=== PATIENT | female | born 1930 | race Caucasian/White ===

== ENCOUNTER 2017-01-04 11:47 | Emergency (ER) | payer MEDICARE ==
--- NOTE | 2017-01-04 12:40 | RAD ---
LEFT KNEE 4 VIEWS: HISTORY: Left knee injury. COMPARISON: 08/16/13. FINDINGS: Prominent soft tissue swelling now overlies the anterior soft tissues. A small amount of fluid dist ends the suprapatellar bursa. Bulky osteophytosis and chondrocalcinosis is again demonstrated. The re is joint space narrowing and mild lateral subluxation at the level of the knee. IMPRESSION: In addition to the severe osteoarthritic changes, there is now prominent prepatellar soft tissue jay jay welsh. POS: [facility]
--- NOTE | 2017-01-04 12:45 | CT ---
CT HEAD NONCONTRAST: HISTORY: Fall. Head injury. COMPARISON: 11/02/2007 FINDINGS: There is no evidence of acute intracranial hemorrhage or infarct. Diffuse cortical atrophy and balancer scale nessa ischemic small vessel disease are again demonstrated. There is no mass effect or shift of midli ne structures. The visualized paranasal sinuses remain well aerated. IMPRESSION: No acute traumatic injury is demonstrated. POS: [facility]
--- NOTE | 2017-01-04 13:16 | RAD ---
RIGHT ELBOW FOUR VIEWS: HISTORY: Fall. Right elbow injury. FINDINGS: Radial capitellar alignment is maintained. There is osteophytosis, joint space narrowing, and chond rocalcinosis. No acute fracture, dislocation, or fluid distention of the joint capsule is apparent. IMPRESSION: Osteoarthritis, right elbow. POS: [facility]
== END 2017-01-04 13:45 | disposition home or self-care (01) ==
LOC: SCSER 11:47
DX: S80.02XA Contusion of left knee, initial encounter (principal); S50.01XA Contusion of right elbow, initial encounter; M19.90 Unspecified osteoarthritis, unspecified site; E11.9 Type 2 diabetes mellitus without complications; K21.9 Gastro-esophageal reflux disease without esophagitis; E78.5 Hyperlipidemia, unspecified; I10 Essential (primary) hypertension; Z87.891 Personal history of nicotine dependence; W18.30XA Fall on same level, unspecified, initial encounter
CPT/HCPCS: 70450

== ENCOUNTER 2017-06-13 14:36 | Emergency (ER) | payer MEDICARE ==
--- NOTE | 2017-06-13 15:16 | CT ---
CT BRAIN WITHOUT CONTRAST: Date: 06/13/17 HISTORY: Fall. COMPARISON: CT brain dated 01/04/17. FINDINGS: There is intraparenchymal hemorrhage of the body of the right caudate, as well as some hemorrhage wit hin the periventricular white matter. There is also a small focus of hemorrhage is the anterior horn of the right lateral ventricle. There is a punctate calcification along the left superior frontal sulcus. Paranasal sinuses and mastoids are clear. IMPRESSION: Acute intraparenchymal hemorrhage of the body of the right caudate, measuring 0.6 x 1.1 x 1.1 cm. The re is a small focus of hemorrhage extending to the periventricular white matter and within the anteri or horn of right lateral ventricle. Dr. Eden notified of findings at 1507 hours on 06/13/17. CODE CR. POS: [facility]
--- NOTE | 2017-06-13 16:10 | CT ---
CT CERVICAL SPINE NONCONTRAST: Date: 06/13/17 HISTORY: Fall. Neck injury. FINDINGS: Vertebral body heights are maintained. There is disc space narrowing and prominent osteophytosis thro ughout the cervical spine. Cervicothoracic junction is intact. No acute fracture or dislocation. Calc ification in the arterial structures. IMPRESSION: 1. No acute osseous abnormalities are demonstrated. 2. Prominent arthritic changes cervical spine. 3. Atherosclerosis. POS: [facility]
[2017-06-13 16:32] LABS: #Lymphocytes 1.4 thou/uL (1.20-3.40); #Monocytes 0.8 thou/uL (0.11-0.59); #Neutrophils 4.8 thou/uL (1.40-6.50); %Basophils 0.4 % (0.0-1.0); %Eosinophils 0.1 % (0.0-10.0); %Lymphocytes 19.6 % (21.0-51.0); %Monocytes 10.9 % (0.0-10.0); Mean Corpuscular HGB CONC 30.9 g/dL (32.0-36.0); Mean Corpuscular Hemoglobin 25.8 pg (27.0-31.0); Mean Corpuscular Volume 83.5 fl (81.0-99.0); Mean Platelet Volume 10.6 fL (7.4-10.4); Platelet Count 241 thou/uL (130-400); RBC Distribution Width 15.7 % (11.5-14.5); Red Blood Cell (RBC) Count 5.05 mill/uL (4.20-5.40)
[2017-06-13 16:51] LABS: Bilirubin Negative (Negative); Blood, Urine Negative (Negative); Clarity CLEAR (Clear); Glucose, Urine (Dipstick) 100 mg/dL (Negative); Leukocyte Negative (Negative); Nitrite Negative (Negative); Protein, Urine (Dipstick) Negative (Neg-Trace); Specific Gravity, Urine 1.012 (1.002-1.036); pH, Urine 7.5 (5.0-9.0)
[2017-06-13 17:07] LABS: INR-International Normal Ratio 1.1
[2017-06-13 17:08] LABS: PTT 35.9 SEC (22.9-36.1)
[2017-06-13 17:18] LABS: ALT (SGPT) 14 U/L (8-55); AST (SGOT) 19 U/L (5-34); Albumin 3.8 g/dL (3.4-4.8); Alkaline Phosphatase 80 U/L (40-150); Anion Gap 9 mmol/L (10-20); BUN (Urea Nitrogen) 13 mg/dL (9.8-20.1); Bilirubin, Total 0.5 mg/dL (0.2-1.2); CK (CPK) 61 U/L (29-168); Calc. Creatinine Clearance 0 mL/min (70-130); Carbon Dioxide 27 mmol/L (23-31); Chloride 105 mmol/L (98-107); Estimated GFR-MDRD 67; Globulin 2.7 g/dL (2.4-3.5); Glucose 141 mg/dL (83-110); Protein, Total 6.5 g/dL (6.0-8.3); Sodium 137 mmol/L (136-145)
[2017-06-13 17:23] LABS: CKMB 3.3 ng/mL (0-6.6); Troponin I Less than 0.010 ng/mL (< 0.028)
--- NOTE | 2017-06-13 23:21 | CON ---
DATE OF CONSULTATION: 06/13/2017 HISTORY OF PRESENT ILLNESS: Ms. De Luna is an 87-year-old female who presents today to [facility] after she got out from a nap and went to the bathroom and fell in her bathroom. She hit he r head and has a small contusion to the right-sided frontal scalp. CT scan of the head at [facility] showed an acute intraparenchymal hemorrhage in the right caudate and small periventricular hemorrhage in the white matter and anterior horn of the right lateral ventricle. She is on a baby as pirin daily. On exam, she has some chronic short term memory loss per family. Otherwise, completely neurologically intact and she is alert and oriented x3 and has a GCS of 15. Neurosurgery was consul tamra for the findings on the CT scan of the brain. ALLERGIES: 1. NOVOCAIN. 2. PROPARACAINE HYDROCHLORIDE. CURRENT MEDICATIONS: 1. Celebrex 200 mg oral. 2. Januvia 50 mg oral. 3. Metformin 500 mg oral. 4. Metoprolol succinate extended release 24 hour 50 mg oral. 5. Furosemide 20 mg oral. 6. Sertraline 100 mg oral. 7. Lisinopril 40 mg oral. 8. Potassium 95 mg oral. 9. Aspirin 81 mg oral. 10. Clonidine patch transdermal weekly 0.1 mg q.24 hours transdermal. PAST MEDICAL HISTORY: Includes diabetes, gastroesophageal reflux disease, hyperlipidemia, high shane sterol, and hypertension. PAST SURGICAL HISTORY: Includes pacemaker, appendectomy, coronary artery bypass graft, hysterectomy, bilateral shoulder and hip replacements. SOCIAL HISTORY: The patient denies any alcohol or drug use. She is a former tobacco user, smoked ci garettes and denies alcohol use. REVIEW OF SYSTEMS: A 10-point review of systems completed. The patient has complaints of right-side d contusion. She admits to falling in her bathroom. The contusion is right frontal scalp. Otherwis e, review of systems is negative, unless stated in the above HPI. PHYSICAL EXAMINATION: VITAL SIGNS: Blood pressure 149/85, pulse 73, respirations 20, temperature is 97.7. GENERAL: The patient is alert and oriented x3. She is lying in her bed, in no acute distress. HEENT: Normocephalic with a sign of traumatic contusion to the right frontal scalp. Trachea is midl ine. Mild loss of hearing that is chronic. RESPIRATORY: The patient has bilateral symmetric chest rise. Appears to be in no shortness breath. CARDIOVASCULAR: The patient has regular rate and rhythm, normal S1, S2 heart sounds. No distal cyan osis or clubbing noted. EXTREMITIES: The patient has a 5/5 strength bilaterally in the upper and lower extremities. There a re no focal sensory or motor deficits noted. NEUROLOGIC: Cranial nerves II-XII are grossly intact. GCS of 15. Speech is fluent. She answers my questions appropriately. IMPRESSION: This is an 87-year-old female status post fall and has a small right caudate acute hemor rhage. PLAN: After reviewing the images with Dr. Damon, the increased attenuation on the CT scan is lik jennifer a calcification or a very small hemorrhage. As long as the patient has someone watching her at [facility], she can be discharged. If there is any worsening of exam, please bring the patient back to the emergency department for repeat CT scan. We will follow up in our office in 3-4 weeks with a repeat CT scan to assess any changes. If there are any further questions, please feel free to contact Neuro surgery.
== END 2017-06-13 19:07 | disposition home or self-care (01) ==
LOC: ERS 14:36
DX: S06.309A Unspecified focal traumatic brain injury with loss of consciousness of unspecified duration, initial encounter (principal); S60.511A Abrasion of right hand, initial encounter; E11.9 Type 2 diabetes mellitus without complications; K21.9 Gastro-esophageal reflux disease without esophagitis; E78.5 Hyperlipidemia, unspecified; I10 Essential (primary) hypertension; Z87.891 Personal history of nicotine dependence; Z79.4 Long term (current) use of insulin; Z79.899 Other long term (current) drug therapy; Z79.82 Long term (current) use of aspirin; W18.11XA Fall from or off toilet without subsequent striking against object, initial encounter
CPT/HCPCS: 36415; 70450; 72125; 80053; 81003; 82553; 84484; 85025; 85610; 85730; G0390

== ENCOUNTER 2017-07-14 20:20 | Inpatient (IN) | payer MEDICARE ==
[2017-07-14] MEDS ORDERED: traMADol HCl 50 MG TAB ONE (21:51)
--- NOTE | 2017-07-14 22:14 | RAD ---
FRONTAL VIEW PELVIS: 07/14/17 COMPARISON: 11/02/07 CLINICAL HISTORY: Fall with pelvis pain. FINDINGS: Right hip prosthesis is present. There is no acute, displaced pelvic fracture. Patient is rotated. IMPRESSION: No obvious acute process of the pelvis. POS: [facility]
--- NOTE | 2017-07-14 22:25 | RAD ---
FOUR VIEW LEFT KNEE: 07/14/17 CLINICAL HISTORY: Fall with injury and pain. FINDINGS: There is a comminuted distal femoral fracture centered at the distal metaphyseal region with apex med ial and anterior angulation. There is heterotopic density. Distracted fracture of the patella is seen . There is associated joint capsular distention and soft tissue edema. IMPRESSION: Comminuted distal femoral fracture. Distracted patellar fracture. Orthopedic consultation is warranted. POS: [facility]
[2017-07-14 22:42] LABS: #Lymphocytes 0.8 thou/uL (1.20-3.40); #Monocytes 0.5 thou/uL (0.11-0.59); #Neutrophils 11.9 thou/uL (1.40-6.50); %Basophils 0.2 % (0.0-1.0); %Eosinophils 0.2 % (0.0-10.0); %Lymphocytes 6.3 % (21.0-51.0); %Neutrophils 89.3 % (42.0-75.0); Hemoglobin 13.3 g/dL (12.0-16.0); Mean Corpuscular HGB CONC 32.8 g/dL (32.0-36.0); Mean Corpuscular Hemoglobin 26.5 pg (27.0-31.0); Mean Corpuscular Volume 80.7 fl (81.0-99.0); Mean Platelet Volume 8.4 fL (7.4-10.4); Platelet Count 228 thou/uL (130-400); RBC Distribution Width 14.4 % (11.5-14.5); Red Blood Cell (RBC) Count 5.04 mill/uL (4.20-5.40); White Blood Cell (WBC) Count 13.3 thou/uL (4.8-10.8)
[2017-07-14 22:46] LABS: Bilirubin Negative (Negative); Blood, Urine Trace (Negative); Clarity CLEAR (Clear); Glucose, Urine (Dipstick) 100 mg/dL (Negative); Leukocyte Negative (Negative); Nitrite Negative (Negative); Protein, Urine (Dipstick) Negative (Neg-Trace); Specific Gravity, Urine 1.013 (1.002-1.036)
[2017-07-14 22:48] LABS: Bacteria/HPF None Seen HPF (None Seen); Hyaline Casts/LPF 0-3 HYALINE CAST LPF (0-3 Hyaline); Squamous Epithelial None Seen HPF (0-3); WBC/HPF None Seen HPF (0-3)
[2017-07-14 22:51] LABS: Prothrombin Time 13.6 SEC (12.0-14.7)
[2017-07-14 22:52] LABS: PTT 35.7 SEC (22.9-36.1)
--- NOTE | 2017-07-14 22:52 | RAD ---
FRONTAL VIEW CHEST: 07/14/17 INDICATION: Injury, fall with pain. FINDINGS: There is bilateral diffuse interstitial reticulonodular opacification of the lungs. The cardiac silho uette and pulmonary vasculature are prominent. There is a left sided dual lead subclavian cardiac pac ing device. Evidence of prior sternotomy, with vascular calcification. Mild linear density of the mid right lung may relate to mild component of fissural fluid or pleural thickening. IMPRESSION: Findings most consistent with CHF and interstitial edema. Superimposed atypical infectious/inflammato ry process not excluded. Correlate clinically. Recommend imaging followup. POS: [facility]
[2017-07-14 23:00] LABS: ALT (SGPT) 10 U/L (8-55); AST (SGOT) 16 U/L (5-34); Albumin 4.3 g/dL (3.4-4.8); Alkaline Phosphatase 86 U/L (40-150); Anion Gap 15 mmol/L (10-20); BUN (Urea Nitrogen) 14 mg/dL (9.8-20.1); Bilirubin, Total 0.6 mg/dL (0.2-1.2); Calc. Creatinine Clearance 0 mL/min (70-130); Calcium 9.4 mg/dL (7.8-10.44); Carbon Dioxide 21 mmol/L (23-31); Chloride 100 mmol/L (98-107); Estimated GFR-MDRD 68; Globulin 3.2 g/dL (2.4-3.5); Glucose 191 mg/dL (83-110); Protein, Total 7.5 g/dL (6.0-8.3); Sodium 132 mmol/L (136-145)
[2017-07-14 23:57] LABS: CKMB 2.3 ng/mL (0-6.6); Troponin I Less than 0.010 ng/mL (< 0.028)
[2017-07-15] MEDS ORDERED: Dextrose 5% in Water 1,000 ML IV PRN (00:07)
[2017-07-15] MEDS ORDERED: Ondansetron ODT 4 MG TAB PO PRN (00:07)
[2017-07-15] MEDS ORDERED: hydrALAZINE 20 MG/ML VIAL SLOW IVP PRN (00:07)
[2017-07-15] MEDS ORDERED: Ondansetron PF 4 MG/2 ML Vial IVP PRN (00:07)
[2017-07-15] MEDS ORDERED: Dextrose 50% Abboject 50 ML SYRINGE SLOW IVP PRN (00:07)
[2017-07-15] MEDS ORDERED: Morphine 4 MG/ML VIAL SLOW IVP PRN (00:07)
[2017-07-15] MEDS ORDERED: Ketorolac Tromethamine 30 MG/ML VIAL ONE (00:16)
[2017-07-15 02:07] VITALS: BMI 25.0
[2017-07-15] MEDS: Sodium Chloride 0.9% 1,000 ML IV SCH ×2 (02:19→19:36)
[2017-07-15] MEDS: Ketorolac Tromethamine 30 MG/ML VIAL IVP SCH ×3 (02:28→19:36)
[2017-07-15] MEDS: Acetaminophen 1,000 MG in Premix Bag 1 BAG IVPB SCH ×3 (02:28→19:36)
[2017-07-15] MEDS: traMADol HCl 50 MG TAB PO SCH ×4 (02:29→19:33)
--- NOTE | 2017-07-15 05:16 | HP ---
DATE OF ADMISSION: 07/14/2017 ATTENDING PHYSICIAN: Ignacio Bermeo M.D. TRAUMA ACTIVATION: Not applicable. HISTORY OF PRESENT ILLNESS: This is an 87-year-old female who presented to [facility] status post mechanical fall. Per patient and daughter at bedside, patient was in the bathroom earlier today whe n she slipped and fell landing on her left side. The patient had immediate onset of left lower extre mity pain and was unable to bear weight on that side. She was evaluated in the emergency room and fo und to have a distal left femur fracture. Of note, the patient has a history of left patellar fractu re that was treated nonoperatively secondary to increased cardiac risk in 01/2017. Upon my evaluatio n, the patient has a chief complaint of left knee pain. She vocalized no other complaint at this cait e. She denies hitting her head or loss of consciousness. ALLERGIES: NOVOCAIN. PAST MEDICAL HISTORY: Significant for diabetes, hypertension, dementia, coronary artery disease stat us post CABG, permanent pacemaker implantation, and congestive heart failure. PAST SURGICAL HISTORY: CABG, permanent pacemaker, bilateral shoulder surgery, right hip surgery, chidi k surgery x2, hysterectomy, cholecystectomy, appendectomy. SOCIAL HISTORY: The patient lives at home with 24-hour caregiver presence. She ambulates with a wal ker. She denies any alcohol use. She has a remote history of tobacco use. Denies illicit drug use. REVIEW OF SYSTEMS: Negative except as indicated in the HPI. PHYSICAL EXAMINATION: VITAL SIGNS: On evaluation, heart rate 73, blood pressure 182/103, pulse ox 94% on room air, respira tions 18, and last temperature 98.4. GENERAL: Well-developed elderly female resting in bed in no acute distress. HEAD: Normocephalic, atraumatic. EYES: Pupils are PERRLA. Extraocular movements are intact. NECK: Supple. Trachea is midline. Range of motion within normal limits for patient. CHEST/PULMONARY: Normal work of breathing, symmetric rise. There is a midline incision consistent w ith coronary artery bypass grafting history. LUNGS: Clear to auscultation bilaterally. CARDIOVASCULAR: Regular rate and rhythm, no obvious murmurs, rubs or gallops. GASTROINTESTINAL: Soft, nontender, nondistended. Bowel sounds are positive. BACK: Reported as being within normal limits. MUSCULOSKELETAL: Bilateral upper extremities within normal limits. Right lower extremity within nor mal limits. Left knee shows diffuse swelling with some ecchymosis. Range of motion is limited secon kev to pain. NEUROLOGIC: Alert and oriented to person, place, and time. No focal deficit is noted. Left lower e xtremity, she is neurovascularly intact distal to the side of her injury. LABORATORY FINDINGS: WBC 13.3, hemoglobin 13.3, hematocrit 40.7, and platelet count 228. INR 1.0. Sodium 132, potassium 4.0, chloride 100, carbon dioxide 21, BUN 14, creatinine 0.80, glucose 191. T and ALT within normal limits. Urinalysis was with glucosuria, ketonuria, and some blood, otherwise unremarkable. Cardiac enzymes are pending. EKG with ventricular paced rhythm, no evidence of ST segment elevation myocardial infarction. RADIOGRAPHIC FINDINGS: X-ray of the left knee, significant for distal femur fracture and patellar fr acture. Pelvic x-ray was negative for acute fracture or dislocation. Chest x-ray showed diffuse omer ateral infiltrates. ASSESSMENT: 1. Status post mechanical fall. 2. Left distal femur fracture. 3. Acute traumatic pain. 4. History of coronary artery disease status post coronary artery bypass graft. 5. History of congestive heart failure present on admission. 6. History of hypertension. 7. History of diabetes. 8. History of dementia. 9. History of patellar fracture. 10. History of frequent falls. PLAN: 1. Admit to Trauma Services. 2. Orthopedic surgery has been notified of injury and we will evaluate the patient in the morning. The patient will be n.p.o. after midnight until evaluated by Orthopedic Surgery. Sliding scale insul in and Accu-Cheks. Perioperative pain management. Postoperative PT and OT. Per discussion with Ort hopedic Surgery, place the patient in a knee immobilizer now. The patient's catering assistant is Dr. Jerri lugo. Day shift team will attempt to contact his office to obtain cardiac records. Echo has been orde red. Follow up cardiac enzymes. Per discussion with patient and daughter at bedside, the patient wi shes to be a DO NOT RESUSCITATE for this admission. This will be reflected in her chart. Plan for a dmission were discussed with the patient and daughter and all questions were answered at the time of this dictation. Trauma attending has been notified of admission.
[2017-07-15 05:44] LABS: #Lymphocytes 1.8 thou/uL (1.20-3.40); #Monocytes 0.9 thou/uL (0.11-0.59); #Neutrophils 6.6 thou/uL (1.40-6.50); %Basophils 0.2 % (0.0-1.0); %Eosinophils 0.1 % (0.0-10.0); %Lymphocytes 19.2 % (21.0-51.0); %Neutrophils 70.5 % (42.0-75.0); Hemoglobin 11.9 g/dL (12.0-16.0); Mean Corpuscular HGB CONC 32.4 g/dL (32.0-36.0); Mean Corpuscular Hemoglobin 26.3 pg (27.0-31.0); Mean Platelet Volume 8.2 fL (7.4-10.4); Platelet Count 204 thou/uL (130-400); RBC Distribution Width 14.4 % (11.5-14.5); Red Blood Cell (RBC) Count 4.54 mill/uL (4.20-5.40); White Blood Cell (WBC) Count 9.4 thou/uL (4.8-10.8)
[2017-07-15 05:58] LABS: Anion Gap 11 mmol/L (10-20); BUN (Urea Nitrogen) 13 mg/dL (9.8-20.1); Calc. Creatinine Clearance 49 mL/min (70-130); Carbon Dioxide 26 mmol/L (23-31); Chloride 102 mmol/L (98-107); Estimated GFR-MDRD 74; Glucose 118 mg/dL (83-110); Magnesium 1.5 mg/dL (1.6-2.6); Phosphorus 4.1 mg/dL (2.3-4.7); Potassium 3.6 mmol/L (3.5-5.1); Sodium 135 mmol/L (136-145)
[2017-07-15] MEDS ORDERED: CEFAZOLIN/Water 2 GM/20 ML SYRINGE SLOW IVP SCH (07:15)
[2017-07-15] MEDS ORDERED: Furosemide 40 MG/4 ML VIAL SLOW IVP SCH (07:45)
--- NOTE | 2017-07-15 07:45 | CON ---
DATE OF CONSULTATION: 07/15/2017 REQUESTING PHYSICIAN: Dr. Ignacio Bermeo. CONSULTING PHYSICIAN: Dr. Jairo Kelly. REASON FOR CONSULTATION: Left femur fracture. HISTORY OF PRESENT ILLNESS: This is an 87-year-old female who is established with victorina Arceo to the emergency department last night, status post mechanical fall at home. The patient states that she was in the bathroom when she turned a corner and slipped and fell. Her caregiver tried to c atch her, but her left leg twisted. She had immediate pain and was unable to bear weight. She was f ound in the emergency room to have a left distal displaced femur fracture. Orthopedics was consulted for this reason. Patient is familiar to our service. She has had a history of a right hip replacem ent performed by Dr. Kelly as well as a left patellar fracture treated nonoperatively in 01/2017. A t bedside, the patient denies any other complaints at this time. Denies any other injuries. Denies hitting her head or losing consciousness. Her daughter is at bedside. ALLERGIES: NOVOCAIN. PAST MEDICAL HISTORY: Significant for diabetes, hypertension, dementia, coronary artery disease stat us post CABG, permanent pacemaker implantation, congestive heart failure. PAST SURGICAL HISTORY: CABG, permanent pacemaker, bilateral shoulder surgery, right hip surgery, chidi k surgery x2, hysterectomy, cholecystectomy, appendectomy. SOCIAL HISTORY: The patient lives at home with 24-hour caregiver. She normally ambulates with a wal ker. She denies any alcohol or illicit drug use. She does have a history of remote tobacco use. FAMILY HISTORY: Noncontributory. REVIEW OF SYSTEMS: Ten point review of systems conducted and otherwise negative except for noted abo ve. PHYSICAL EXAMINATION: VITAL SIGNS: Temperature of 97.9, pulse of 66, respiratory rate of 20, blood pressure 156/73. GENERAL: The patient is awake, alert, and oriented x3. She is in no acute distress. She is hard of hearing. Daughter is at bedside. HEENT: Head is normocephalic, atraumatic. NECK: Supple. RESPIRATORY: Breathing is nonlabored. EXTREMITIES: The left lower extremity was examined. She has swelling and tenderness to palpation al adrianne the distal femur. Range of motion not assessed secondary to fracture. Distal neurovascular stat us is intact. SKIN: Intact. RADIOGRAPHIC FINDINGS: Reviewed with Dr. Kelly today including views of the left knee show a displa rajendra left distal femur fracture. This appears comminuted. There is also presence of an old patellar fracture. Pelvis x-rays also reviewed, which shows evidence of an old right total hip replacement. No acute findings. ASSESSMENT AND PLAN: Left distal femur fracture with displacement and comminution. Dr. Tapia has a greed to see the patient. There is an echo ordered for today. The patient seen at bedside and plan of care discussed with Dr. Kelly. We plan to take the patient to the operating room this morning fo r open reduction internal fixation of the left distal femur fracture. Patient and family are in agre eance with the plan of care. Risks, benefits, and alternatives of surgery were discussed at length w ith the patient. They verbalized understanding. We plan to go to the OR this morning. Thank you for this consultation.
--- NOTE | 2017-07-15 07:58 | CON ---
DATE OF CONSULTATION: 07/15/2017 REASON FOR CONSULTATION: Preoperative evaluation. HISTORY OF PRESENT ILLNESS: Ms. Angel De Luna is a delightful 87-year-old woman with history of b ypass surgery, pacemaker insertion, hypertension who has a femur fracture and needs repair. Ms. De Luna was admitted to the hospital after she had fallen and fractured her femur. The patien t has been doing well from a cardiac standpoint, she has not been having chest pain or pressure, no s hortness of breath. The patient fell because she lost her balance. ALLERGIES: NOVOCAIN. PAST HISTORY: 1. Previous bypass surgery. 2. Previous pacemaker insertion. She had the pacemaker checked in March of this year. There was estimated to be 3.5 years left on the battery and the pacer is functioning normally. REVIEW OF SYSTEMS: CONSTITUTIONAL: No significant weight gain or loss. VISION: No changes. HEARING: No changes. PULMONARY: No cough or wheezing. GASTROINTESTINAL: No nausea, vomiting, diarrhea. SKIN: No rashes. NEUROLOGIC: No unilateral weakness or numbness. PSYCHIATRIC: No unusual depression or anxiety. HEMATOLOGIC: No unusual bruising. GENITOURINARY: No burning with urination. PAST MEDICAL HISTORY: 1. As mentioned previous coronary artery bypass grafting, not having angina. 2. History of hypertension, controlled. 3. Dual chamber pacemaker with normal function. PHYSICAL EXAMINATION: GENERAL: This is a delightful elderly woman resting comfortably in no distress, alert and oriented, not having chest pain, no shortness of breath. She is lying supine. VITAL SIGNS: Blood pressure 156/73, pulse 66 regular. HEENT: Eyes; sclerae nonicteric. Mouth mucous membranes moist. NECK: Supple, no lymphadenopathy. LUNGS: Clear, no wheezing, rales or rhonchi. CARDIAC: Normal S1, normal S2. There is no murmur, rub or gallop. ABDOMEN: Soft, nontender. EXTREMITIES: No clubbing or cyanosis, no edema. SKIN: Warm and dry. PERTINENT LABORATORY AND X-RAY FINDINGS: Hemoglobin 11.9. Creatinine is 0.74. The patient's last cardiac catheterization was done in 2012. She had patent graft to the LAD, diagon al, and right coronary artery. 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 There was some distal atherosclerosis. Ejection fraction 55% at that time. EKG reveals a ventricular paced rhythm. Chest x-ray shows some pulmonary vascular congestion. ASSESSMENT: Stable cardiac status probably somewhat volume overloaded. PLAN: 1. Will give a single dose of furosemide. 2. Okay with me to proceed to surgical therapy, may need some diuretic postoperatively.
[2017-07-15] MEDS ORDERED: Metoprolol Tartrate 5 MG/5 ML VIAL ONE (08:09)
[2017-07-15] MEDS ORDERED: CEFAZOLIN/Water 2 GM/20 ML SYRINGE ONE (08:13)
[2017-07-15] MEDS ORDERED: Potassium Chloride 40 MEQ, Magnesium Sulfate 2 GM in Sodium Chloride 0.9% 250 ML 250 ML IVPB SCH (08:30)
[2017-07-15] MEDS ORDERED: Famotidine/PF 20 mg/2ml Vial SLOW IVP SCH (09:00)
[2017-07-15] MEDS ORDERED: Metoprolol Tartrate 50 MG TAB PO SCH (09:00)
[2017-07-15] MEDS ORDERED: Fentanyl 100 MCG/2 ML VIAL ONE ×2 (09:18→10:40)
[2017-07-15] MEDS ORDERED: Promethazine HCl 25 MG/ML VIAL IM PRN ×2 (10:22→11:52)
[2017-07-15] MEDS ORDERED: Promethazine HCl 25 MG/ML VIAL SLOW IVP PRN ×2 (10:22→11:52)
[2017-07-15] MEDS ORDERED: Ondansetron HCl/PF 4 MG/2 ML Vial IVP PRN ×2 (10:22→11:52)
--- NOTE | 2017-07-15 10:36 | RAD ---
FIVE INTRAOPERATIVE RADIOGRAPHS LFT FEMUR: HISTORY: Left leg trauma. Open reduction internal fixation. FINDINGS: Five intraoperative radiographs of the left femur obtained. Images demonstrate placement of plates and screws across the fractured distal femur. Plates and scre ws are in good position. IMPRESSION: Open reduction internal fixation distal left femoral fracture. POS: [facility]
[2017-07-15] MEDS ORDERED: Ibuprofen 600 MG TAB PO SCH (14:45)
[2017-07-15] MEDS ORDERED: Furosemide 40 MG/4 ML VIAL ONE (14:58)
[2017-07-15] MEDS ORDERED: PROPOFOL 200 MG/20 ML VIAL ONE (15:06)
[2017-07-15] MEDS ORDERED: Ondansetron PF 4 MG/2 ML Vial ONE (15:06)
[2017-07-15] MEDS ORDERED: Dexamethasone 20 MG/5 ML VIAL ONE (15:06)
[2017-07-15] MEDS ORDERED: PHENYLEPHRINE-NS 100 MCG/ML 10 ML SYRINGE ONE (15:06)
--- NOTE | 2017-07-15 15:26 | PRG ---
DATE OF SERVICE: 07/15/2017. SUBJECTIVE: Ms. Angel De Luna is an 87-year-old female status post mechanical fall, hospital day #02, postop day #0, status post distal femur fracture repair. The patient was seen and evaluated by Cardiology early this morning and cleared for surgery. She is now postoperative. She has remained h emodynamically stable. Upon my evaluation, the patient has a chief complaint of very mild left knee discomfort, but otherwise reports feeling much better than yesterday and vocalized no other complaint s. OBJECTIVE: VITAL SIGNS: Prior to evaluation, blood pressure 118/73, pulse 76, respirations 16, O2 sat 92% on 3 liters nasal cannula, temperature 97.8. GENERAL: Well-developed elderly female resting in bed, in no acute distress. HEENT: Head is normocephalic, atraumatic. Wearing nasal cannula. CHEST AND PULMONARY: Normal work of breathing, symmetric rise. CARDIOVASCULAR AND EXTREMITIES: Appear well perfused. Pulses 2+ bilaterally. ABDOMEN AND GASTROINTESTINAL: Soft, nontender, nondistended. MUSCULOSKELETAL: Moves all extremities x4, left knee is in a knee immobilizer. She is neurovascular ly intact distal to the side of her injury. NEUROLOGIC: GCS is 15. No focal deficit is noted. LABORATORY DATA: WBC 9.4, hemoglobin 11.9, hematocrit 36.8, platelet count 204. Sodium 135, potassi um 3.6, chloride 102, carbon dioxide 26, BUN 13, creatinine 0.74, glucose 118, phosphorus 4.1, magnes ium 1.5. RADIOGRAPHIC FINDINGS: No new radiographic findings. ASSESSMENT: 1. Status post mechanical fall. 2. Left distal femur fracture postop day #0 status post open reduction internal fixation. 3. Acute traumatic pain. 4. Hypertension, present on admission. 5. History of coronary artery disease, present on admission, stable. 6. Congestive heart failure, present on admission, stable. 7. Acute hypokalemia and hypomagnesemia. 8. Dementia, present on admission. 9. Diabetes, present on admission, stable. 10. Frequent falls. PLAN: 1. Continue to follow postoperatively. P.o. analgesics for pain. Postoperative PT and OT evaluatio n. Encourage incentive spirometry and pulmonary toileting. Rehab consult for disposition. Resume h ome antihypertensive. The patient should be on a consistent carbohydrate diet. 2. Initiate chemical deep venous thrombosis prophylaxis. Replete electrolytes, a.m. labs. Follow C ardiology and orthopedic recommendations. Assessment and plan discussed with Dr. Barker at the time of this dictation.
--- NOTE | 2017-07-15 17:44 | OP ---
DATE OF PROCEDURE: 07/15/2017 TYPE OF PROCEDURE: Open reduction and internal fixation of left femur. PREOPERATIVE DIAGNOSES: Left femur fracture. POSTOPERATIVE DIAGNOSIS: Left femur fracture. IMPLANTS USED: Synthes variable angle locking plate. SURGEON: Jairo Kelly M.D. HYPERION ADMINISTRATOR: JED Gaytan. BLOOD LOSS: Minimal. SPECIMEN: None. DRAINS: None. COMPLICATIONS: None. DESCRIPTION OF PROCEDURE: The patient was taken to the operating room operating where general anesth esia was induced. Left leg was prepped and draped in the usual sterile fashion. I made a longitudin al incision laterally. Fracture was exposed and reduced. A 16-hole plate was applied to the lateral aspect of the femur and I checked the placement and reduction. Biplane fluoroscopy has begun fillin g holes proximally with bone screws for the shaft except for the most proximal screw, which was a loc candace screw distally, used variable angle locking screws and obtained an anatomic reduction. Irrigati on performed. Hemostasis obtained. Fascia was closed with #2 Quill and #1 Vicryl, subcu closed with 0 Quill, skin was closed finally with malcolm. Puncture wounds for the percutaneous proximal holes were closed with malcolm.
[2017-07-15] MEDS: CEFAZOLIN/Water 2 GM/20 ML SYRINGE SLOW IVP SCH (17:49)
[2017-07-15] MEDS: Acetaminophen 500 MG TAB PO SCH (17:49)
[2017-07-15] MEDS ORDERED: Potassium Chloride 20 MEQ TAB PO SCH (18:00)
[2017-07-15] MEDS: HumaLOG 300 UNITS/3 ML VIAL SC PRN (19:30)
[2017-07-15] MEDS: Senokot S 8.6-50 MG TAB PO SCH ×2 (19:34→21:49)
[2017-07-15] MEDS: Pantoprazole 40 MG VIAL IVP SCH (19:34)
[2017-07-15] MEDS: Metoprolol Tartrate 50 MG TAB PO SCH (21:49)
[2017-07-15] MEDS: traMADol HCl 50 MG TAB PO PRN (21:50)
[2017-07-16] MEDS: Acetaminophen 500 MG TAB PO SCH ×4 (00:23→18:20)
[2017-07-16] MEDS: traMADol HCl 50 MG TAB PO SCH ×4 (00:23→18:21)
[2017-07-16] MEDS: CEFAZOLIN/Water 2 GM/20 ML SYRINGE SLOW IVP SCH ×2 (00:24→08:17)
[2017-07-16 05:52] LABS: #Lymphocytes 1.7 thou/uL (1.20-3.40); %Basophils 0.2 % (0.0-1.0); %Eosinophils 0.2 % (0.0-10.0); %Monocytes 11.2 % (0.0-10.0); %Neutrophils 69.4 % (42.0-75.0); Hemoglobin 10.6 g/dL (12.0-16.0); Mean Corpuscular HGB CONC 32.3 g/dL (32.0-36.0); Mean Corpuscular Hemoglobin 26.5 pg (27.0-31.0); Mean Corpuscular Volume 81.9 fl (81.0-99.0); Mean Platelet Volume 8.4 fL (7.4-10.4); Platelet Count 188 thou/uL (130-400); RBC Distribution Width 14.4 % (11.5-14.5); Red Blood Cell (RBC) Count 3.99 mill/uL (4.20-5.40); White Blood Cell (WBC) Count 8.7 thou/uL (4.8-10.8)
[2017-07-16 05:57] LABS: Anion Gap 10 mmol/L (10-20); BUN (Urea Nitrogen) 13 mg/dL (9.8-20.1); Calc. Creatinine Clearance 43 mL/min (70-130); Calcium 8.5 mg/dL (7.8-10.44); Carbon Dioxide 25 mmol/L (23-31); Chloride 104 mmol/L (98-107); Estimated GFR-MDRD 63; Glucose 123 mg/dL (83-110); Magnesium 1.6 mg/dL (1.6-2.6); Phosphorus 4.4 mg/dL (2.3-4.7); Potassium 4.1 mmol/L (3.5-5.1); Sodium 135 mmol/L (136-145)
[2017-07-16] MEDS ORDERED: HYDROcodone/Acetaminophen 10/325 mg Tablet PO PRN ×2 (06:00)
[2017-07-16] MEDS ORDERED: Furosemide 20 MG/2 ML VIAL SLOW IVP SCH (06:00)
[2017-07-16] MEDS: Heparin 5,000 UNITS/ML VIAL SC SCH ×4 (06:49→21:06)
[2017-07-16] MEDS: Pantoprazole 40 MG VIAL IVP SCH (08:14)
[2017-07-16] MEDS: Polyethylene Glycol 3350 17 GM Packet PO SCH (08:16)
[2017-07-16] MEDS: Senokot S 8.6-50 MG TAB PO SCH ×2 (08:16→21:07)
[2017-07-16] MEDS: CeleCOXIB 100 MG CAP PO SCH (08:16)
[2017-07-16] MEDS: Lisinopril 20 MG TAB PO SCH (08:16)
[2017-07-16] MEDS: Metoprolol Tartrate 50 MG TAB PO SCH ×2 (08:17→21:06)
--- NOTE | 2017-07-16 12:36 | PDOC.CTH ---
Cardiology Progress Note - Subjective She is doing well. No new issues. She had her surgery yesterday without issues. - Objective Vital Signs Temp Pulse Resp BP Pulse Ox 07/16/17 12:20 97.6 F 70 16 129/62 98 07/16/17 07:50 97.6 F 72 16 164/74 H 96 07/16/17 04:00 97.8 F 68 18 135/82 95 Weight 132 lb 8 oz 07/15/17 07/16/17 07/17/17 06:59 06:59 06:59 Intake Total 1100 Output Total 1100 Balance 0 - Physical Examination General/Neuro: alert & oriented x3, NAD Neck: no JVD present Lungs: CTA, unlabored respirations Heart: RRR Abdomen: NT/ND Extremities: + edema B (trace) - Labs Result Diagrams: 07/16/17 04:37 07/16/17 04:37 Troponin/CKMB CK-MB (CK-2) 2.3 ng/mL (0-6.6) 07/14/17 22:20 Troponin I Less than 0.010 ng/mL (< 0.028) 07/14/17 22:20 - Assessment/Plan 1. Femur Fx s/p repair. 2. Hx of CABG 3. Presence of a PPM. PLAN: - Continue post op care. - PT as tolerated. - CV stable. - Will follow from a distance. - Please call with any questions.
[2017-07-16] MEDS ORDERED: Magnesium Sulfate 4 GM in Sodium Chloride 0.9% 250 ML 250 ML IVPB SCH (20:45)
--- NOTE | 2017-07-17 00:11 | PRG ---
DATE OF SERVICE: 07/16/2017 SUBJECTIVE: Patient is hospital day #3, postop day #1 status post distal femur open reduction and in ternal fixation and the patient tolerated this procedure well. This morning, she is resting comforta wilber in bed. She is tolerating a diet. She states that her pain is controlled and she is about to wo rk with physical and occupational therapy. OBJECTIVE: VITAL SIGNS: Temperature is 97.6, heart rate 72, blood pressure 164/74, respirations 16, oxygen satu ration 96% on room air. GENERAL: Patient is awake, alert, and oriented and appropriate. HEENT: Unremarkable. LUNGS: Clear to auscultation with good inspiratory and expiratory effort. HEART: Regular rate and rhythm. ABDOMEN: Soft, flat, nontender with active bowel sounds. Pelvis is stable. EXTREMITIES: Neurovascularly intact x4. Dressing is clean, dry, and intact. LABORATORY DATA: White blood cell count 8.7, hemoglobin 10.6, hematocrit 32.7, platelets 188. Sodiu m 135, potassium 4.1, chloride 104, CO2 of 25, BUN 13, creatinine 0.85, glucose 123, magnesium 1.6, p hosphorus 4.4. There are no radiographs to review this morning. ASSESSMENT AND PLAN: 1. Status post ground level fall. 2. Status post open reduction and internal fixation of left distal femur fracture. PLAN: We will be to continue supportive care, physical and occupational therapy, and await placement decisions.
[2017-07-17] MEDS: traMADol HCl 50 MG TAB PO SCH ×3 (01:26→12:04)
[2017-07-17] MEDS: Acetaminophen 500 MG TAB PO SCH ×3 (01:26→12:04)
[2017-07-17] MEDS: traMADol HCl 50 MG TAB PO PRN (01:27)
[2017-07-17] MEDS: Senokot S 8.6-50 MG TAB PO SCH (09:16)
[2017-07-17] MEDS: Lisinopril 20 MG TAB PO SCH (09:16)
[2017-07-17] MEDS: Polyethylene Glycol 3350 17 GM Packet PO SCH (09:16)
[2017-07-17] MEDS: Heparin 5,000 UNITS/ML VIAL SC SCH (09:17)
[2017-07-17] MEDS: Metoprolol Tartrate 50 MG TAB PO SCH (09:17)
[2017-07-17] MEDS: CeleCOXIB 100 MG CAP PO SCH (09:17)
[2017-07-17 11:58] VITALS: BP 150/76; TEMP 97.5
[2017-07-17] MEDS: HumaLOG 300 UNITS/3 ML VIAL SC PRN (12:07)
--- NOTE | 2017-07-17 16:03 | DIS ---
DATE OF ADMISSION: 07/14/2017 DATE OF DISCHARGE: 07/17/2017 ADMISSION DIAGNOSES: 1. Status post ground level fall. 2. Status post open reduction internal fixation of left distal femur fracture. 3. History of multiple comorbidities. CONSULTATIONS: Orthopedics, Dr. Kelly. PROCEDURES: Open reduction internal fixation of left femur fracture. SUMMARY: The patient is an 87-year-old female, who reportedly had a ground level fall, which she jessica tained a left distal femur fracture. Patient was stable and was able to be taken to the operating ro om to undergo her above procedure. She has been working with physical and occupational therapy. She has been tolerating a diet and her bowel function has returned. She was able to be placed in rehabi litation and will followup with Dr. Kelly in 10-14 days or sooner as needed. She may follow up with the trauma clinic as needed and was also given instructions to follow up with her primary care provi constance and bog cutter after discharge.
--- NOTE | 2017-08-31 14:24 | EKG ---
Test Reason : Blood Pressure : / mmHG Vent. Rate : 083 BPM Atrial Rate : 083 BPM P-R Int : 172 ms QRS Dur : 156 ms QT Int : 442 ms P-R-T Axes : 105 263 087 degrees QTc Int : 519 ms Electronic ventricular pacemaker Confirmed by TRISTAN REMY, JARETH ([id number]), photography editor ALYSON RODRÍGUEZ ([id number]) on 08/31/2017 2:23:41 PM Referred By: Confirmed By:JARETH HUDSON MD
== END 2017-07-17 14:38 | DRG 482 ==
LOC: ERS 20:20 → SURG A 23:34
PROVIDERS: ADMIT Specialist; ATTEND Specialist
PROC: 0QS704Z Reposition Left Upper Femur with Internal Fixation Device, Open Approach (ICD-10-PCS; principal; 2017-07-15)
DX: S72.402A Unspecified fracture of lower end of left femur, initial encounter for closed fracture (principal); I11.0 Hypertensive heart disease with heart failure; I50.9 Heart failure, unspecified; E11.9 Type 2 diabetes mellitus without complications; E83.42 Hypomagnesemia; E87.6 Hypokalemia; I25.10 Atherosclerotic heart disease of native coronary artery without angina pectoris; F03.90 Unspecified dementia, unspecified severity, without behavioral disturbance, psychotic disturbance, mood disturbance, and anxiety; W01.0XXA Fall on same level from slipping, tripping and stumbling without subsequent striking against object, initial encounter; Y92.002 Bathroom of unspecified non-institutional (private) residence as the place of occurrence of the external cause; Z95.5 Presence of coronary angioplasty implant and graft; Z91.81 History of falling; Z66 Do not resuscitate; Z95.0 Presence of cardiac pacemaker; Z95.1 Presence of aortocoronary bypass graft; Z90.49 Acquired absence of other specified parts of digestive tract; Z90.710 Acquired absence of both cervix and uterus
CPT/HCPCS: 36415; 36416; 51702; 71045; 72170; 76001; 80048; 80053; 81003; 81015; 82553; 83735; 84100; 84484; 85025; 85610; 85730; 93005; 96374; C1713; C1769; C9113; G0390; G8978-GP-CK; G8979-GP-CI; G8987-GO-CM; G8988-GO-CL; J0131; J1100; J1644; J1885; J1940; J2405; J2704; J3010; J3475; J3480; J7050